=== PATIENT | female | born 1980 | race Caucasian/White ===

== ENCOUNTER 2018-05-03 18:37 | Emergency (ER) | payer BC ==
[~2018-05-03] VITALS: Ht 154.9 cm; Wt 74.8 kg
[2018-05-03 18:54] VITALS: BP_SYST 111
[2018-05-03] MEDS ORDERED: IBUPROFEN 600 MG TABLET PO ONE (20:15)
[2018-05-03 21:06] VITALS: BP_SYST 111
== END 2018-05-03 21:06 | disposition home or self-care (01) ==
LOC: SED 18:37
DX: S63.91XA Sprain of unspecified part of right wrist and hand, initial encounter (principal); S93.401A Sprain of unspecified ligament of right ankle, initial encounter; Y04.0XXA Assault by unarmed brawl or fight, initial encounter; Y93.89 Activity, other specified; Y92.89 Other specified places as the place of occurrence of the external cause; Y99.8 Other external cause status
CPT/HCPCS: 81025; 99284